=== PATIENT | male | born 1975 | race African-American/Black ===

== ENCOUNTER 2020-01-17 10:11 | Emergency (ER) | payer SELFPAY ==
[~2020-01-17] VITALS: Ht 177.8 cm; Wt 111.3 kg
[2020-01-17 10:16] VITALS: BP 149/98
--- NOTE | 2020-01-17 10:27 | NUR ---
PT CO OF "WHITE LIQUID HAS BEEN COMING OUT OF MY ANUS" X 4 MONTHS NO N/V/D PROVIDER TO BEDSIDE TO PERFORM VISUAL EXAM
== END 2020-01-17 12:10 | disposition home or self-care (01) ==
LOC: ED 10:46
DX: R15.9 Full incontinence of feces (principal); K59.00 Constipation, unspecified; R10.9 Unspecified abdominal pain
CPT/HCPCS: 74018; 99283